=== PATIENT | male | born 1975 | race African-American/Black ===

== ENCOUNTER 2020-04-13 05:10 | Emergency (ER) | payer BC ==
[~2020-04-13] VITALS: Ht 185.4 cm; Wt 154.2 kg
[2020-04-13] MEDS ORDERED: NORVASC 2.5 MG2.5 M1 PO (05:16)
[2020-04-13] MEDS ORDERED: METFORMIN HCL500 M3 PO (05:16)
[2020-04-13 06:27] LABS: HEMATOCRIT 40.7 % (42.0-52.0); HEMOGLOBIN 13.3 gm/dL (14.0-18.0); MCH 27.6 pg (26.0-34.0); MCHC 32.7 g/dL (28.0-37.0); MCV 84.6 fL (80.0-100.0); PLATELET COUNT 276 thou/uL (150-400); RBC 4.81 mil/uL (4.50-6.00); RDW 16.2 % (10.5-14.5); WBC 12.3 thou/uL (4.0-11.0)
[2020-04-13 06:37] LABS: CALCIUM 8.8 mg/dL (8.5-10.1)
[2020-04-13] MEDS ORDERED: AUGMENTIN 875-1 EACH PO (08:10)
[2020-04-13] MEDS ORDERED: IBUPROFEN 800800 M1 PO (08:10)
[2020-04-13] MEDS ORDERED: HYDROCODONE-ACE15 ML PO (08:10)
[2020-04-13] MEDS ORDERED: SENNA-DOCUSATE1 EAC1 PO (08:10)
[2020-04-13 08:28] VITALS: BP 129/92
[2020-04-13 10:29] LABS: ABSOLUTE NEUTROPHILS 6.2 thou/uL (1.4-8.2); ANISOCYTOSIS SLIGHT; ATYPICAL LYMPHS 2 %
== END 2020-04-13 08:28 | disposition home or self-care (01) ==
LOC: ER 05:10
PROVIDERS: Student in an Organized Health Care Education/Training Program
DX: J02.0 Streptococcal pharyngitis (principal); I10 Essential (primary) hypertension; Z79.899 Other long term (current) drug therapy